=== PATIENT | female | born 1980 | race Caucasian/White ===

== ENCOUNTER 2017-06-30 17:32 | Emergency (ER) | payer OTHER ==
[2017-06-30 17:40] VITALS: BP 131/78
--- NOTE | 2017-06-30 18:23 | UC ---
Derick Feliz Alfonso, scribed for Aldo Avitia MD on 06/30/17 at 1808 . Dental HPI - HPI Summary HPI Summary: This patient is a 36 year old F presenting to [facility] accompanied by her baby with a chief complaint of left lower dental pain since 5 days ago. She states I think the tooth is infected. The CC is described as red hot crystals that if you touch it the tooth will shatter. The patient rates the pain 8/10 in severity. Symptoms aggravated by food and alleviated by nothing. Patient denies fever, and chills. She reports being on amoxicillin. - History of Current Complaint Chief Complaint: UCDentalProblem Stated Complaint: DENTAL COMPLAINT Time Seen by Provider: 06/30/17 17:55 Hx Obtained From: Patient Onset/Duration: Sudden Onset, Lasting Days - 5, Still Present Severity: Moderate Pain Intensity: 8 Pain Scale Used: 0-10 Numeric Aggravating: Other - Food Alleviating: Nothing - Allergies/Home Medications Allergies/Adverse Reactions: Allergies Allergy/AdvReac Type Severity Reaction Status Date / Time INHALED ANESTHESIA AdvReac Severe Fever Uncoded 11/14/12 21:37 Home Medications: Home Medications Amoxicillin PO (*) [Amoxicillin 500 MG CAP*] 500 mg PO TID 06/30/17 [History Confirmed 06/30/17] Lrlivsk-Ptngqdyrc-Iexl [Calcium & Magnesium + Zin 334-134-5 mg] 1 tab PO [History] Ibuprofen [Advil] 600 mg PO 06/30/17 [History] PMH/Surg Hx/FS Hx/Imm Hx Respiratory History: Asthma - Surgical History Surgical History: None Surgery Procedure, Year, and Place: DENIES - Family History Known Family History: Negative: Diabetes - Social History Alcohol Use: None Substance Use Type: None Smoking Status (MU): Never Smoked Tobacco - Immunization History Most Recent Influenza Vaccination: refused Most Recent Tetanus Shot: unk Most Recent Pneumonia Vaccination: n/a Review of Systems Constitutional: Other - Negative fever and chills. ENT: Dental Pain All Other Systems Reviewed And Are Negative: Yes Physical Exam Triage Information Reviewed: Yes Vital Signs: Initial Vital Signs Temp 98.4 F 06/30/17 17:35 Pulse 105 06/30/17 17:35 Resp 18 06/30/17 17:35 BP 131/78 08/12/17 17:35 Pulse Ox 99 06/30/17 17:35 Vital Signs Reviewed: Yes - Additional Comments The patient is well-nourished in no acute distress and in no acute pain. The skin is warm and dry and skin color reflects adequate perfusion. HEENT: The head is normocephalic and atraumatic. The pupils are equal and reactive. The conjunctivae are clear and without drainage. Nares are patent and without drainage. Mouth reveals moist mucous membranes and the throat is without erythema and exudate. The external ears are intact. The ear canals are patent and without drainage. The tympanic membranes are intact. Patient unable to open mouth for further evaluation. Soft tissue swelling over left mandibular and submandibular area. No erythema. Increased salivation. No TMJ tenderness. Neck is supple with full range of motion and non-tender. There are no carotid bruits. There is no neck vein distension. Respiratory: Chest is non-tender. Lungs are clear to auscultation and breath sounds are symmetrical and equal. Cardiovascular: Heart is regular rate and rhythm. There is no murmur or rub auscultated. There is no peripheral edema and pulses are symmetrical and equal. Abdomen: The abdomen is soft and non-tender. There are normal bowel sounds heard in all four quadrants and there is no organomegaly palpated. Musculoskeletal: There is no back pain noted. Extremities are non-tender with full range of motion. There is good capillary refill. There is no peripheral edema or calf tenderness elicited. Neurological: Patient is alert and oriented to person, place and time. The patient has symmetrical motor strength in all four extremities. Cranial nerves are grossly intact. Psychiatric: The patient has an appropriate affect and does not exhibit any anxiety or depression. Dental Complaint Course/Dx - Course Course Of Treatment: This patient is a 36 year old F presenting to [facility] accompanied by her baby with a chief complaint of left lower dental pain since 5 days ago. She states I think the tooth is infected. The CC is described as red hot crystals that if you touch it the tooth will shatter. The patient rates the pain 8/10 in severity. Symptoms aggravated by food and alleviated by nothing. Patient denies fever, and chills. She reports being on amoxicillin. Consider Alexei angina and facial abscess. Recommend the patient goes to further work up, blood work, and imaging. Patient will present immediately to the emergency department. The patient is agreeable with this plan. - Differential Dx/Diagnosis Differential Diagnosis/Dx: Dental Abscess, Dental Caries, Alexei's Angina, Odontogenic Pain Provider Diagnoses: Consider Alexei angina and facial abscess. Discharge - Discharge Plan Condition: Stable Disposition: TRANS HIGHER LVL OF CARE FAC Discharge Disposition Comment: EMERGENCY DEPARTMENT Patient Education Materials: Dental Abscess (ED) Additional Instructions: GO IMMEDIATELY TO THE EMERGENCY DEPARTMENT FOR FURTHER WORK UP AND EVALUATION. The documentation as recorded by the Derick walker Alfonso accurately reflects the service I personally performed and the decisions made by Sadi jesus Drew, MD.
== END 2017-06-30 18:26 | disposition short-term general hospital (02) ==
LOC: UCEAST 17:32
DX: K12.2 Cellulitis and abscess of mouth (principal); J45.909 Unspecified asthma, uncomplicated
CPT/HCPCS: 99211; G0463

== ENCOUNTER 2017-07-05 13:31 | Emergency (ER) | payer OTHER ==
[2017-07-05 13:40] VITALS: BP 115/58
--- NOTE | 2017-07-05 14:47 | ED ---
Throat Pain/Nasal Congestion - HPI Summary HPI Summary: 36 female presents with complaints of left lower dental pain that began ~7 days ago. Patient was seen at 5 days ago, at onset and told to come to ED for further evaluation however did not come until today. Was given antibiotics by [facility] 7 days ago. Has taken all doses with last dose being yesterday. Patient states she has had significant improvement. She at first was unable to swallow and open her mouth due to swelling of left lower jaw and pain however has significantly improved since. She still is having some discomfort and wanted to get the CT now that she knows it is covered by insurance. Still having trouble opening her mouth but she is able to some, improvement since last evaluation. No trouble breathing or swallowing. No fever/chills. No significant swelling or discharge lately. No PMHx. No other complaints. Has appointment for root canal on the . Pain is under control with OTC ibuprofen. - History of Current Complaint Chief Complaint: EDDentalPain Time Seen by Provider: 07/05/17 13:43 Hx Obtained From: Patient Onset/Duration: Sudden Onset, Lasting Days, Still Present - improving, Resolved - improved Severity: Severe Associated Signs And Symptoms: Positive: Dysphagia - resolved, Drooling - resolved Cough: None - Epiglottits Risk Factors Epiglottis Risk Factors: Negative - Allergies/Home Medications Allergies/Adverse Reactions: Allergies Allergy/AdvReac Type Severity Reaction Status Date / Time INHALED ANESTHESIA AdvReac Severe Fever Uncoded 07/05/17 13:39 PMH/Surg Hx/FS Hx/Imm Hx Endocrine/Hematology History: Denies: Hx Diabetes Cardiovascular History: Denies: Hx Hypertension Respiratory History: Reports: Hx Asthma - resolved in her 20's GI History: Denies: Other GI Disorders - DENIES History: Denies: Other Problems/Disorders - DENIES - Cancer History Cancer Type, Location and Year: DENIES - Surgical History Surgery Procedure, Year, and Place: DENIES - Immunization History Immunizations Up to Date: Yes Infectious Disease History: No Infectious Disease History: Denies: Traveled Outside the [place] in Last 30 Days - Family History Known Family History: Positive: None Negative: Diabetes - Social History Alcohol Use: None Substance Use Type: Reports: None Smoking Status (MU): Never Smoked Tobacco Review of Systems Constitutional: Negative Eyes: Negative Positive: Dental Pain, Other - trismus Cardiovascular: Negative Respiratory: Negative Skin: Negative Neurological: Negative All Other Systems Reviewed And Are Negative: Yes Physical Exam Triage Information Reviewed: Yes Vital Signs On Initial Exam: Initial Vitals Temp Pulse Resp BP Pulse Ox 98 F 73 16 115/58 99 07/05/17 13:39 07/05/17 13:39 07/05/17 13:39 07/05/17 13:39 07/05/17 13:39 Vital Signs Reviewed: Yes Appearance: Positive: Well-Appearing, No Pain Distress, Well-Nourished Skin: Positive: Warm, Skin Color Reflects Adequate Perfusion, Dry. Negative: Cold, Numb, Cyanosis @, Pale, Erythema @ Head/Face: Positive: Normal Head/Face Inspection, Other - no obvious edema noted in maxilla, mandibular or submandibular area. however tender and firm to touch, left mandiublar/submandibular area. no sign of ludwigs angina Eyes: Positive: EOMI, CARLOS, Conjunctiva Clear ENT: Positive: Hearing grossly normal, Pharynx normal - as able to visualize due to some trismus, TMs normal, Trismus - improved since 5 days ago, still having some trismus,able to open mouth some, Dental tenderness - left lower molar, Other - No erythema or increased salivation. No TMJ tenderness. airway patent.. Negative: Muffled/hoarse voice Dental: Positive: Gross Decay/Caries @, Cervical Lymphadenopathy - left submandibular. Negative: Percussion Tenderness @ Neck: Positive: Supple, Nontender, No Lymphadenopathy Respiratory/Lung Sounds: Positive: Clear to Auscultation, Breath Sounds Present. Negative: Rales, Rhonchi, Wheezes Cardiovascular: Positive: Normal, RRR, Pulses are Symmetrical in both Upper and Lower Extremities. Negative: Murmur, Rub Abdomen Description: Positive: Nontender Bowel Sounds: Positive: Present Musculoskeletal: Positive: Normal, Strength/ROM Intact Neurological: Positive: Normal, Sensory/Motor Intact, Alert, Oriented to Person Place, Time Psychiatric: Positive: Affect/Mood Appropriate Diagnostics - Vital Signs Vital Signs Temp Pulse Resp BP Pulse Ox 07/05/17 13:46 98 F 73 16 115/58 100 07/05/17 13:39 98 F 73 16 115/58 99 - Laboratory Result Diagrams: 07/05/17 14:50 07/05/17 14:50 Lab Statement: Any lab studies that have been ordered have been reviewed, and results considered in the medical decision making process. - CT maxillofacial with CT Interpretation: No Acute Changes - no evidence of dental abscess, mildly enlarged left submandibular lymph node. recommend dentist consultation with history of lower tooth pain CT Interpretation Completed By: Radiologist EENT Course/Dx - Course Course Of Treatment: Further workup including CT and blood work obtained. unremarkable labs and CT. will be sent home with continuation of antibiotics for 7 more days due to extent of infection and improvement after taking amox. has appointment with dentist on 07/16. continue ibuprofen for pain and inflammation. Close follow up. Aware of worsening signs and symptoms to watch out for. No concern for ludwigs angina or drainable/septic abscess at this time. - Differential Diagnoses Differential Diagnoses: Dental Abscess, Dental Caries, Fractured Tooth, Alexei' s Angina, Other - Diagnoses Provider Diagnoses: Pain, dental, Dental abscess Discharge - Discharge Plan Condition: Stable Disposition: HOME Prescriptions: Amoxicillin PO (*) [Amoxicillin 500 MG CAP*] 500 mg PO TID #21 cap Patient Education Materials: Dental Abscess (ED), Toothache (ED) Referrals: [facility] [Outside] Additional Instructions: Take antibiotic as directed for the next 7 days. Recommend taking probiotic or eating kenyan yogurt in between doses to replenish good bacteria. Cool compresses. Take ibuprofen for pain/inflammation. Follow up and be sure to go to your dentist appointment on 07/16. If your symptoms worsen or new symptoms please return or seek medical attention promptly.
[2017-07-05 15:34] LABS: Hematocrit 40 % (35-47); Hemoglobin 13.6 g/dl (12.0-16.0); Mean Corpuscular HGB Conc 34 g/dl (31-36); Mean Corpuscular Hemoglobin 30 pg (27-31); Mean Corpuscular Volume 89 fL (80-97); Mean Platelet Volume 9 um3 (7.4-10.4); Red Cell Distribution Width 12 % (10.5-15); White Blood Count 5.9 10^3/ul (3.5-10.8)
[2017-07-05 15:35] LABS: Albumin 4.3 g/dL (3.2-5.2); BUN/Creatinine Ratio 13.2 (8-20); Calcium 9.5 mg/dL (8.6-10.3); EGFR Non-African American 70.8 (>60); Globulin 2.6 g/dL (2-4); Potassium 4.4 mmol/L (3.5-5.0); Total Bilirubin 0.6 mg/dL (0.2-1.0); Total Protein 6.9 g/dL (6.4-8.9)
[2017-07-05] MEDS ORDERED: Iohexol 300* (CONTRAST) 10 ML SDV IV ONE (16:18)
--- NOTE | 2017-07-05 17:12 | RAD ---
INDICATION: Lower tooth pain for 5 days to evaluate for abscess. COMPARISON: There are no prior studies available for comparison. TECHNIQUE: Contiguous axial sections of the axial images of the facial bones were obtained and reconstructed in the coronal and sagittal planes. The exam was performed following intravenous contrast enhancement with 75 mL of Omnipaque 300 nonionic contrast. FINDINGS: No focal fluid collection or abscess is seen. No focal periapical lucency is appreciated. The parotid and submandibular glands appear within normal limits. There is a mildly enlarged left submandibular lymph node measuring 1.3 x 0.7 cm in size. The paranasal sinuses and mastoid air cells appear clear. There appears to be a small calcific foreign body present in the soft tissues lateral to the left side, measuring 0.4 cm in size. IMPRESSION: 1. NO EVIDENCE FOR ABSCESS. 2. MILDLY ENLARGED LEFT SUBMANDIBULAR LYMPH NODE. 3. RECOMMEND DENTAL CONSULTATION IN THIS PATIENT WITH A HISTORY OF LOWER TOOTH PAIN.
== END 2017-07-05 17:40 | disposition home or self-care (01) ==
LOC: ED 13:31
DX: K04.7 Periapical abscess without sinus (principal); K08.89 Other specified disorders of teeth and supporting structures; R13.10 Dysphagia, unspecified
CPT/HCPCS: 36415; 70487; 80053; 85025; 99281; Q9967